=== PATIENT | male | born 1990 | race African-American/Black ===

== ENCOUNTER 2019-10-14 01:59 | Emergency (ER) | payer OTHER ==
[~2019-10-14] VITALS: Ht 185.4 cm; Wt 81.8 kg
[2019-10-14] MEDS ORDERED: SERT50TA12 PO (03:55)
[2019-10-14] MEDS ORDERED: LIDOCAINE 1%/EPI 1:200,000/PF 10 ML VIAL INJ ONE (05:00)
[2019-10-14 05:52] VITALS: BP 129/78
== END 2019-10-14 06:00 | disposition home or self-care (01) ==
LOC: EMS 02:01
DX: S01.01XA Laceration without foreign body of scalp, initial encounter (principal); S50.02XA Contusion of left elbow, initial encounter; W50.0XXA Accidental hit or strike by another person, initial encounter; Y93.89 Activity, other specified; Y92.89 Other specified places as the place of occurrence of the external cause; Y99.8 Other external cause status
CPT/HCPCS: 12002; 70450; 73080; 99284; J3490